=== PATIENT | male | born 2005 ===

== ENCOUNTER 2024-08-25 18:17 | Outpatient (REF) | payer MEDICAID, SELFPAY ==
[2024-08-26 14:13] LABS: CT PCR NOT DETECTED (Not Detect.); NG PCR NOT DETECTED (Not Detect.)
[2024-08-27 15:08] LABS: Trichomonas vaginalis RNA NOT DETECTED (NOT DETECTED)
== END 2024-08-25 18:18 | disposition home or self-care (01) ==
LOC: HO.LNP 18:17
PROVIDERS: Visit Provider Internal Medicine
DX: Z91.89 Other specified personal risk factors, not elsewhere classified (principal)
CPT/HCPCS: 87491; 87591; 87661

== ENCOUNTER 2024-10-27 21:59 | Emergency (ER) | payer MEDICAID, SELFPAY ==
--- NOTE | ~2024-10-27 | XR_ITS ---
CLINICAL HISTORY: eval for FB stepped on nail 3 view right foot Comparison: None provided Findings: No fractures or dislocations. No significant arthritic change or erosions. No ankle effusion. No radiopaque foreign body. IMPRESSION: 1. No acute findings. This document has been electronically signed by: Maximino Patel MD on 10/27/2024 22:54:22
[2024-10-27 22:01] VITALS: BP 127/88; PULSE 78; RESP 17; TEMP 37.1; O2SAT 98; BMI 31.3
--- NOTE | 2024-10-27 22:14 | ED_ITS ---
HPI - Extremity Injury (Lower) General Chief Complaint: Extremity Injury, Lower Stated Complaint: stepped on nail right foot Time Seen by Provider: 10/27/24 22:04 Source: patient and family Mode of arrival: ambulatory Limitations: no limitations History of Present Illness ED Provider: ELLEN HPI Narrative: 19 yo male with no known PMH here with c/o puncture wound of R foot - nail through hard boot. He was in [place] most of his childhood and his father reports he thinks he had one dose of Tdap as a child but states he doesn't think he completed the series. The patient and son are unclear if anything remains in the foot from the monse. Wound was cleaned and no bleeding now. MD complaint: foot injury Onset (ago): day(s) (today) Injury: Right: foot Type of Injury: puncture wound Place: street/outdoors Severity: mild Relieving factors: immobilization Exacerbating factors: weight bearing Context: walking Associated symptoms: able to partially bear weight Other symptoms: none Related Data Previous Rx's ?Medication ?Instructions ?Recorded levofloxacin 500 mg tablet 500 mg PO Q24H #4 tabs 06/22 Allergies Allergy/AdvReac Type Severity Reaction Status Date / Time No Known Allergies Allergy Verified 10/27/24 22:04 Review of Systems Review of Systems: Constitutional : No Fever, No Chills, Cardiovascular : No Chest Pain, No SOB Respiratory : No Dyspnea Gastrointestinal : No abdominal pain Musculoskeletal : No Joint Swelling Skin : No rash, positive skin wound Neuro : No Weakness, No Numbness Yes all other systems are reviewed and are negative [facility] Past Medical History Attestation statement: The following information was validated with the patient. Source: old records reviewed Medical History (Updated 10/27/24 @ 22:34 by Smita Diop DO) No pertinent past medical history Social History Social History (Updated 10/27/24 @ 22:21 by Simta Diop DO) Patient Tobacco Use Status: Never used Tobacco Advance Directives: No Advance Directives Information Provided: No Do you have a plan to hurt others: No Plan Physical Exam Vital Signs: Vital Signs: Last Vital Signs Temp 98.7 F 10/27/24 22:01 Pulse 78 10/27/24 22:01 Resp 17 10/27/24 22:01 BP 127/88 10/27/24 22:01 Pulse Ox 98 10/27/24 22:01 O2 Del Method Room Air 10/27/24 22:01 BMI result Body Mass Index 31.3 Appearance: Alert. Oriented X3. No acute distress. Eyes: Pupils equal, round and reactive to light. ENT: Pharynx normal. Neck: Normal inspection. Neck supple. CVS: Normal heart rate and rhythm. Pulses normal. Respiratory: No respiratory distress. Breath sounds normal. Abdomen: Soft and nontender. Skin: Skin warm and dry. Normal skin color. Extremities: No lower extremity edema. R foot on plantar surface there is a non bleeding puncture wound no signs of infection and no FB felt. Neuro: Oriented X 3. No motor deficit. No sensory deficit. CN2-12 intact Course Course Course Narrative: pharmacy called we do not have immune globulin they are calling around 1032pm Reevaluation(s) Reevaluation #1: national shortage of tetanus immune globulin pharmacy has tried [facility] will ship immune globulin here Medical Decision Making Medical Decision Making MDM Narrative: 19 yo male with no known PMH here with c/o puncture wound from nail of R foot - there are no signs of infection and the patient also reports incomplete childhood series of tdap - at this time Tdap and 250mg IM immune globulin ordered. Xray for FB as well. If negative will DC home with PO levofloxacin as prophylaxis. Differential Diagnosis Differential Diagnoses: The differential diagnosis associated with the presentation includes puncture wound, lack of tetanus series Admission/Observation Consideration of admission/observation: Escalation of care including admission/observation considered no signs of infection stable for DC Independent Interpretation I performed an independent interpretation of an: Plain X-Ray (no FB) Radiology Impression Discussion of test interpretation with radiology: I have reviewed the radiologist's reading. Independent Historian Clinical information obtained from an independent historian. History obtained from or confirmed by: Parent Prescription Management I considered prescription management with: Antibiotic Discharge Plan Discharge Clinical Impression: Puncture wound of foot Qualifiers: Encounter type: initial encounter Laterality: right Qualified Code(s): S91.331A - Puncture wound without foreign body, right foot, initial encounter Patient Disposition: Home, Self-Care Instructions: Levofloxacin (By mouth), Tetanus Immune Globulin (By injection), Puncture Wound (ED) Additional Instructions: no nail seen on xray return for redness, swelling, yellow drainage, fevers or any other concerns okay to shower but no [place], pools, river, hot tubs only clean water keep area clean dry and covered while on antibiotic please no heavy lifting or strenuous activity you can injury your tendons. Prescriptions: New levofloxacin 500 mg tablet 500 mg PO Q24H Qty: 4 0RF Print Language: Fijian
[2024-10-28 00:01] VITALS: BP 118/54; PULSE 61; RESP 20; TEMP 36.5; O2SAT 99
[2024-10-28] MEDS: Diphth,Pertus(ACell),Tet Adult 0.5 ML SYRINGE IM (00:51)
[2024-10-28 01:10] VITALS: BP 115/43; PULSE 70; RESP 16; TEMP 36.5; O2SAT 98
== END 2024-10-28 01:10 | disposition home or self-care (01) ==
PROVIDERS: Emergency Provider Emergency Medicine
DX: S91.331A Puncture wound without foreign body, right foot, initial encounter (principal); W45.0XXA Nail entering through skin, initial encounter; Y93.89 Activity, other specified; Y92.480 Sidewalk as the place of occurrence of the external cause; Y99.9 Unspecified external cause status; Z23 Encounter for immunization
CPT/HCPCS: 73630; 90471; 90472; 90715; 99283; 99284; J1670

== ENCOUNTER → 2024-10-27 22:11 | Outpatient (BNV) | payer MEDICAID, SELFPAY | PROVIDERS: Emergency Provider Emergency Medicine; Visit Provider Radiology Diagnostic Radiology | DX: S91.331A Puncture wound without foreign body, right foot, initial encounter (principal) | CPT/HCPCS: 73630 ==